=== PATIENT | male | born 1985 | race African-American/Black ===

== ENCOUNTER 2022-02-05 13:48 | Emergency (ER) | payer OTHER ==
[2022-02-05 14:06] VITALS: BP 165/94; PULSE 99; RESP 18; TEMP 98.4; BMI 36.6
[2022-02-05] MEDS ORDERED: KETOROLAC TROMETHAMINE 30 MG/1 ML VIAL IM ONE (14:26)
[2022-02-05] MEDS ORDERED: KETOROLAC TROMETHAMINE 30 MG/1 ML VIAL ONE (14:30)
== END 2022-02-05 15:31 | disposition home or self-care (01) ==
LOC: JERFT 13:48 → JER 13:48 → JERFT 15:31
PROC: 3E0233Z Introduction of Anti-inflammatory into Muscle, Percutaneous Approach (ICD-10-PCS; principal; 2022-02-05)
DX: S13.4XXA Sprain of ligaments of cervical spine, initial encounter (principal)
CPT/HCPCS: 72040-TC; 99284-25

== ENCOUNTER 2023-05-12 21:32 | Emergency (ER) | payer OTHER ==
[2023-05-12 21:37] VITALS: BP 171/110; PULSE 95; RESP 20; TEMP 98.4; BMI 36.6
== END 2023-05-12 22:54 | disposition home or self-care (01) ==
LOC: JERFT 21:32
DX: R05.9 Cough, unspecified (principal); B34.9 Viral infection, unspecified; R09.81 Nasal congestion; Z20.822 Contact with and (suspected) exposure to COVID-19
CPT/HCPCS: 0241U-QW; 99283-25

== ENCOUNTER 2023-10-24 14:04 | Inpatient (IN) | payer OTHER ==
[2023-10-24 14:13] VITALS: RESP 18
[2023-10-24 15:51] LABS: BASO % 0.9 % (0-2.0); EOS % 1.5 % (0-4.5); HEMATOCRIT 38.6 % (35.4-49); HEMOGLOBIN 12.8 GM/dL (11.7-16.9); LYMPH % 14.1 % (8-40); MCH 26.5 pg (25.7-33.7); MEAN CELL VOLUME 80.1 fl (80-96); NEUT % 77.5 % (42.8-82.8); PLATELET COUNT 257 10^3/uL (134-434); RBC 4.82 M/mm3 (4.00-5.60); RDW 17.2 % (11.9-15.9); WHITE BLOOD COUNT 9.1 K/mm3 (4.0-10.0)
[2023-10-24 16:05] LABS: INR 1.06 (0.83-1.09); POTASSIUM 3.6 mmol/L (3.5-5.1); PROTHROMBIN TIME (PATIENT) 12.2 SEC (9.7-13.0)
[2023-10-24 16:07] LABS: CALCIUM 9.2 mg/dL (8.5-10.1)
[2023-10-24 16:08] LABS: ACTIVATED PTT 30.2 SECONDS (25.2-36.5); BLOOD UREA NITROGEN 14.6 mg/dL (7-18)
[2023-10-24 16:11] LABS: CREATININE 1.3 mg/dL (0.55-1.3)
[2023-10-24 16:12] LABS: BILIRUBIN,TOTAL 0.4 mg/dL (0.2-1); TOT PROT 7.7 g/dl (6.4-8.2)
[2023-10-24] MEDS ORDERED: HEPARIN NA (PORCINE) 5,000 UNITS/ML 1ML VIAL IVPUSH PRN (17:50)
[2023-10-24] MEDS: HEPARIN NA (PORCINE) 5,000 UNITS/ML 1ML VIAL IVPUSH PRN (18:40)
[2023-10-24] MEDS: HEPARIN INFUSION - 25,000 UNITS/500 ML INFUS.BAG IVPB SCH (18:40)
[2023-10-24 20:55] VITALS: BMI 37.7
[2023-10-24] MEDS: ACETAMINOPHEN 325 MG TABLET (FP) PO ONE (22:03)
[2023-10-24] MEDS: MELATONIN 5 MG TABLETS PO ONE (22:04)
[2023-10-25] MEDS: ACETAMINOPHEN 1000 MG/100 ML BAG IVPB ONE (03:56)
[2023-10-25] MEDS: HEPARIN NA (PORCINE) 5,000 UNITS/ML 1ML VIAL SQ ONE (04:09)
[2023-10-25] MEDS: amLODIPine BESYLATE 10 MG TABLET (FP) PO SCH (09:52)
[2023-10-25] MEDS: LISINOPRIL 20 MG TABLET PO SCH (09:52)
[2023-10-25] MEDS: ACETAMINOPHEN 325 MG TABLET (FP) PO PRN (18:19)
[2023-10-25] MEDS: APIXABAN 5 MG TABLET PO SCH (22:25)
[2023-10-26] MEDS: MELATONIN 5 MG TABLETS PO PRN (00:53)
[2023-10-26 06:34] VITALS: TEMP 98.2
[2023-10-26 09:04] LABS: HEMATOCRIT 37.7 % (35.4-49); HEMOGLOBIN 12.5 GM/dL (11.7-16.9); MCH 26.4 pg (25.7-33.7); MCHC 33.1 g/dl (32.0-35.9); MEAN CELL VOLUME 79.6 fl (80-96); MEAN PLT VOLUME 8.6 fl (7.5-11.1); PLATELET COUNT 269 10^3/uL (134-434); RBC 4.73 M/mm3 (4.00-5.60); RDW 17.4 % (11.9-15.9); WHITE BLOOD COUNT 5.6 K/mm3 (4.0-10.0)
[2023-10-26 15:23] VITALS: BP 141/88; PULSE 80
== END 2023-10-26 16:25 | disposition home or self-care (01) | DRG 134 ==
LOC: JER 14:04 → JERBED 18:00 → UNDOADMOB 18:00 → INTOOBSV 18:00 → JERBED 18:26 → J7W 20:18 → OBSVTOIN 10-25 13:38
PROVIDERS: ADMIT Internal Medicine
DX: I26.99 Other pulmonary embolism without acute cor pulmonale (principal); T81.718A Complication of other artery following a procedure, not elsewhere classified, initial encounter; Y83.8 Other surgical procedures as the cause of abnormal reaction of the patient, or of later complication, without mention of misadventure at the time of the procedure; I10 Essential (primary) hypertension; R79.89 Other specified abnormal findings of blood chemistry; E66.9 Obesity, unspecified; Z68.37 Body mass index [BMI] 37.0-37.9, adult; R00.0 Tachycardia, unspecified
CPT/HCPCS: 36415; 71275-TC; 80053; 83880; 84484; 85025; 85027; 85610; 85730; 93005; 93010; 93306-TC; 93308; 93970-TC; 99285-25; G0378; J1644; Q9967

== ENCOUNTER 2024-01-06 04:08 | Inpatient (IN) | payer OTHER ==
[2024-01-06 04:54] LABS: EOS % 2.2 % (0-4.5); HEMATOCRIT 38.2 % (35.4-49); HEMOGLOBIN 12.3 GM/dL (11.7-16.9); LYMPH % 25.8 % (8-40); MCH 26.1 pg (25.7-33.7); MCHC 32.3 g/dl (32.0-35.9); MEAN CELL VOLUME 80.9 fl (80-96); MEAN PLT VOLUME 8.5 fl (7.5-11.1); MONO % 11.4 % (3.8-10.2); NEUT % 59.6 % (42.8-82.8); PLATELET COUNT 310 10^3/uL (134-434); RBC 4.73 M/mm3 (4.00-5.60); RDW 18.3 % (11.9-15.9); WHITE BLOOD COUNT 5.8 K/mm3 (4.0-10.0)
[2024-01-06] MEDS ORDERED: LABETALOL HCL 20 MG/4 ML VIAL ONE (05:03)
[2024-01-06 05:15] LABS: CHLORIDE 106 mmol/L (98-107); POTASSIUM 3.9 mmol/L (3.5-5.1); SODIUM 141 mmol/L (136-145)
[2024-01-06 05:16] LABS: CALCIUM 8.8 mg/dL (8.5-10.1)
[2024-01-06 05:17] LABS: ALBUMIN 4.1 g/dl (3.4-5.0); ANION GAP 8 mmol/L (4-13); CO2 28 mmol/L (21-32)
[2024-01-06 05:18] LABS: GLUCOSE,RANDOM 106 mg/dL (74-106)
[2024-01-06 05:19] LABS: BLOOD UREA NITROGEN 11.1 mg/dL (7-18)
[2024-01-06 05:20] LABS: SGOT/AST 33 U/L (15-37); SGPT/ALT 31 U/L (13-61)
[2024-01-06 05:21] LABS: CREATININE 1.4 mg/dL (0.55-1.3)
[2024-01-06] MEDS: LABETALOL HCL 5 MG/1 ML (100MG/20 ML VIAL) IVPUSH ONE ×2 (05:21→06:22)
[2024-01-06 05:22] LABS: CHOLESTEROL 261 mg/dL (50-200); INR 1.14 (0.83-1.09); PROTHROMBIN TIME (PATIENT) 13.1 SEC (9.7-13.0); TOT PROT 7.8 g/dl (6.4-8.2)
[2024-01-06 05:23] LABS: BILIRUBIN,TOTAL 0.3 mg/dL (0.2-1); LDL CHOLESTEROL (ONLY SJRH) 182 mg/dL (5-100)
[2024-01-06 05:24] LABS: ALK PHOS 103 U/L (45-117); HDL CHOLESTEROL 50 mg/dL (40-60)
[2024-01-06 05:25] LABS: ACTIVATED PTT 33.7 SECONDS (25.2-36.5)
[2024-01-06] MEDS ORDERED: LABETALOL IN NACL, ISO-OSMOTIC 300 MG/300 ML BAG IV SCH (07:45)
[2024-01-06] MEDS: FACTOR XA,INACTIVATED - BOLUS 400 MG/40 ML VIAL IVPB ONE (08:01)
[2024-01-06] MEDS: SODIUM CHLORIDE 50 ML IVPB ONE ×2 (08:15→10:00)
[2024-01-06] MEDS: FACTOR XA,INACTIVATED-ZHZO 480 MG/48 ML VIAL IVPB ONE (08:28)
[2024-01-06] MEDS ORDERED: ACETAMINOPHEN INJECTION 100 ML ONE (09:57)
[2024-01-06] MEDS: ACETAMINOPHEN 1000 MG/100 ML BAG IVPB ONE (10:34)
[2024-01-06] MEDS: LABETALOL HCL INJECTION 300 MG in SODIUM CHLORIDE 240 ML IV SCH ×2 (13:29→19:55)
[2024-01-06] MEDS: MUPIROCIN 2% TOPICAL OINTMENT FOR DECOLONIZATION NS SCH (15:02)
[2024-01-06 15:48] VITALS: BMI 41.2
[2024-01-06] MEDS: ACETAMINOPHEN 1000 MG/100 ML BAG IVPB PRN (17:05)
[2024-01-06] MEDS: CHLORHEXIDINE GLUCONATE 4% CLEANSER FOR DECOLONIZATION TP SCH (21:09)
[2024-01-06] MEDS: ATORVASTATIN CA 40 MG TABLET (FP) PO SCH (21:09)
[2024-01-06 22:10] LABS: PH,URINE 6.5 (5.0-8.0); URINE APPEARANCE CLEAR; URINE BILIRUBIN NEGATIVE (NEGATIVE); URINE COLOR YELLOW; URINE GLUCOSE (UA) NEGATIVE (NEGATIVE); URINE KETONE NEGATIVE (NEGATIVE); URINE LEUK ESTERASE NEGATIVE (NEGATIVE); URINE NITRITE NEGATIVE (NEGATIVE); URINE PROTEIN NEGATIVE (NEGATIVE)
[2024-01-07] MEDS: ONDANSETRON 4 MG/2 ML VIAL IVPUSH ONE (03:56)
[2024-01-07 07:42] LABS: HEMATOCRIT 33.4 % (35.4-49); HEMOGLOBIN 10.8 GM/dL (11.7-16.9); MCH 26.3 pg (25.7-33.7); MCHC 32.4 g/dl (32.0-35.9); MEAN CELL VOLUME 81.3 fl (80-96); MEAN PLT VOLUME 8.7 fl (7.5-11.1); PLATELET COUNT 269 10^3/uL (134-434); RBC 4.11 M/mm3 (4.00-5.60); RDW 18.1 % (11.9-15.9); WHITE BLOOD COUNT 7.2 K/mm3 (4.0-10.0)
[2024-01-07 08:16] LABS: POTASSIUM 3.4 mmol/L (3.5-5.1)
[2024-01-07] MEDS: FENTANYL CITRATE/PF 50 MCG/ML VIAL IVPUSH ONE (08:27)
[2024-01-07 08:33] LABS: ALBUMIN 3.6 g/dl (3.4-5.0); BLOOD UREA NITROGEN 13.4 mg/dL (7-18); CALCIUM 8.5 mg/dL (8.5-10.1)
[2024-01-07 08:34] LABS: BILIRUBIN,TOTAL 0.5 mg/dL (0.2-1)
[2024-01-07 08:35] LABS: CREATININE 1.5 mg/dL (0.55-1.3)
[2024-01-07 08:37] LABS: TOT PROT 6.9 g/dl (6.4-8.2)
[2024-01-07] MEDS ORDERED: amLODIPine BESYLATE 10 MG TABLET (FP) PO SCH (10:00)
[2024-01-07] MEDS ORDERED: LISINOPRIL 5 MG TABLET PO SCH (10:00)
[2024-01-07 10:41] VITALS: TEMP 98.4
[2024-01-07 10:47] VITALS: BP 129/83; PULSE 72; RESP 16
[2024-01-09 16:12] LABS: HOMOCYSTINE-PLASMA OR SERUM 15.5 umol/L (0.0-14.5)
== END 2024-01-07 10:55 | disposition short-term general hospital (02) | DRG 65 ==
LOC: JER 04:08 → JERBED 09:28 → JICU 14:18
PROVIDERS: ADMIT Internal Medicine Pulmonary Disease; ATTEND Internal Medicine Pulmonary Disease
DX: I62.01 Nontraumatic acute subdural hemorrhage (principal); G81.94 Hemiplegia, unspecified affecting left nondominant side; Z68.41 Body mass index [BMI] 40.0-44.9, adult; I10 Essential (primary) hypertension; E66.01 Morbid (severe) obesity due to excess calories; Z86.711 Personal history of pulmonary embolism
CPT/HCPCS: 0241U-QW; 36415; 70450-TC; 70496-TC; 70498-TC; 70551-TC; 80053; 80061; 81003; 81241; 82550; 82553; 83036; 83090; 84484; 85025; 85027; 85300; 85303; 85306; 85307; 85610; 85613; 85730; 85732; 86850; 86900; 86901; 93005; 93010; 93970-TC; 99285-25; J0131; J7169; Q9967